=== PATIENT | female | born 1970 | race Caucasian/White ===

== ENCOUNTER 2017-04-21 11:30 | Emergency (ER) | payer OTHER ==
[2017-04-21 11:45] VITALS: BP 123/81
--- NOTE | 2017-04-21 11:53 | UC ---
Syncope/New Syncope HPI - HPI Summary HPI Summary: PT HAS HAD DULL, LOW LEVEL, FRONTAL BALLARD FOR SEVERAL DAYS. NO VISUAL DISTURBANCES , NAUSEA, PHOTOPHOBIA OR PHONOPHOBIA. HAS NOT TAKEN ANYTHING FOR PAIN. HAS A H/ O MIGRAINES. THIS MORNING STARTED WITH COUGH AND CONGESTION. WAS HERE IN ACCOMPANYING HER DAUGHTER WHO ENDED UP BEING SWAB POSITIVE FOR FLU B WHEN SHE SUDDENLY DEVELOPED NAUSEA, SWEATS AND PASSED OUT. PT WAS UNRESPONSIVE FOR LESS THAN 1 MINUTE. VOMITED X 1 AFTER REGAINED CONSCIOUSNESS. NO HEAD INJURY. EYES OPEN. SKIN CLAMMY. BP 81/71. PT WAS TRANSFERRED TO A STRETCHER. BP RECOVERED TO 123/81. PT ATE 2 COOKIES THIS MORNING BUT HASN'T BEEN DRINKING MUCH. REPORTS SHE HAS HAD VASOVAGAL REACTIONS BEFORE. 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 Hx Last Menstrual Period: 04/12/17 Onset/Duration: Sudden Onset Activity At Onset: At Rest Timing: Seconds Context: Witnessed Associated Head Trauma: No Pain Intensity: 5 Pain Scale Used: 0-10 Numeric Aggravating Factor(s): Nothing Alleviating Factor(s): Spontaneous Resolution Associated Signs And Symptoms: Positive: Headache - Allergies/Home Medications Allergies/Adverse Reactions: Allergies Allergy/AdvReac Type Severity Reaction Status Date / Time No Known Allergies Allergy Verified 04/21/17 11:45 PMH/Surg Hx/FS Hx/Imm Hx Previously Healthy: Yes - Surgical History Surgical History: Yes Surgery Procedure, Year, and Place: tonsils, Reduction mammoplasty 04/2016 - Family History Known Family History: Positive: Hypertension - Social History Alcohol Use: None Substance Use Type: None Smoking Status (MU): Never Smoked Tobacco - Immunization History Most Recent Influenza Vaccination: Not UTD Review of Systems Constitutional: Negative ENT: Nasal Discharge Respiratory: Cough Cardiovascular: Negative Gastrointestinal: Vomiting, Nausea Neurological: Headache All Other Systems Reviewed And Are Negative: Yes Physical Exam Triage Information Reviewed: Yes Appearance: No Pain Distress, Well-Nourished, Ill-Appearing - MOD Vital Signs: Initial Vital Signs BP 81/71 04/21/17 11:30 Eyes: Positive: Conjunctiva Clear ENT: Positive: Hearing grossly normal, Pharynx normal, TMs normal Neck: Positive: Supple, Nontender, No Lymphadenopathy Respiratory Exam: Normal Cardiovascular Exam: Normal Abdomen Description: Positive: Nontender, Soft Musculoskeletal: Positive: No Edema Neurological: Positive: Alert, Other: - CN II-XII GROSSLY INTACT BILATERALLY. NEG PRONATOR DRIFT. FINGER TO NOSE INTACT BILATERALLY. HEEL TO SAENZ INTACT BILATERALLY. RAPID ALTERNATING MVMTS INTACT. 5/5 STRENGTH Psychological: Positive: Age Appropriate Behavior Skin: Negative: rashes Diagnostics - Laboratory Diagnostic Studies Completed/Ordered: RAPID FLU NEGATIVE - EKG Cardiac Rate: NL Cardiac Rhythm: Sinus: Normal - 95BPM Ectopy: None ST Segment: Normal Syncope Course/Dx - Course Course Of Treatment: TO [facility] [place] ED BY PRIVATE CAR - Differential Dx/Diagnosis Provider Diagnoses: SYNCOPE Discharge - Discharge Plan Condition: Stable Disposition: OTHER Discharge Disposition Comment: TO [facility] [place] [place] ED BY PRIVATE CAR Prescriptions: Oseltamivir CAP* [Tamiflu CAP*] 75 mg PO BID #10 cap Patient Education Materials: Syncope (ED) Referrals: Leigh Louis MD [Primary Care Provider] - If Needed Additional Instructions: FLU TEST NEGATIVE BUT GIVEN YOUR DAUGHTER IS POSITIVE FOR FLU B WILL TREAT WITH TAMIFLU. GIVEN SYNCOPAL EPISODE HERE YOU HAVE BEEN INSTRUCTED TO GO TO THE ER DIRECTLY FROM HERE FOR FURTHER EVALUATION. LIKELY VASOVAGAL REACTION BUT RECOMMEND EVAL FOR OTHER UNDERLYING CAUSES.
[2017-04-21] MEDS ORDERED: Ibuprofen TAB* 600 MG PO ONE (12:32)
== END 2017-04-21 12:40 ==
LOC: UCEAST 11:30
DX: R55 Syncope and collapse (principal); R09.81 Nasal congestion; R05 Cough; R11.2 Nausea with vomiting, unspecified; R51 Headache
CPT/HCPCS: 87502; 93005; 99212; A9270-GY; G0463

== ENCOUNTER 2017-04-21 13:06 | Emergency (ER) | payer OTHER ==
[2017-04-21] MEDS ORDERED: NS 0.9% 1000 ML* 1,000 ML IV ONE (14:59)
--- NOTE | 2017-04-21 15:30 | RAD ---
HISTORY: Syncope COMPARISONS: None TECHNIQUE: Multiple contiguous axial CT scans were obtained of the head without intravenous contrast. FINDINGS: HEMORRHAGE/INFARCT: There is no hemorrhage or acute infarct. MASSES/SHIFT: There is no mass or shift. EXTRA-AXIAL SPACES: There are no extra-axial fluid collections. SULCI AND VENTRICLES: The sulci and ventricles are normal in size and position for the patient's stated age. CEREBRUM: There are no focal parenchymal abnormalities. BRAINSTEM: There are no focal parenchymal abnormalities. CEREBELLUM: There are no focal parenchymal abnormalities. VESSELS: The vessels are grossly normal. PARANASAL SINUSES: The paranasal sinuses are clear. ORBITS: The orbits are unremarkable. BONES AND SOFT TISSUE: No bone or soft tissue abnormalities are noted. OTHER: None IMPRESSION: NO ACUTE INTRACRANIAL PATHOLOGY.
--- NOTE | 2017-04-21 15:47 | RAD ---
Indication: Syncope. 2 views of the chest including dual energy PA views demonstrate no mediastinal shift. Heart is of normal size and configuration. Lung cruz demonstrate no pleural fluid, pneumonia or pneumothorax. No changes noted since May 16, 2009 IMPRESSION: No active cardiopulmonary disease is noted.
[2017-04-21 15:58] LABS: Hematocrit 42 % (35-47); Mean Corpuscular HGB Conc 34 g/dl (31-36); Mean Corpuscular Hemoglobin 29 pg (27-31); Mean Corpuscular Volume 87 fL (80-97); Mean Platelet Volume 7 um3 (7.4-10.4); Red Blood Count 4.78 10^6/ul (4.0-5.4); Red Cell Distribution Width 14 % (10.5-15); White Blood Count 7.3 10^3/ul (3.5-10.8)
[2017-04-21 16:19] LABS: Albumin 4.1 g/dL (3.2-5.2); BUN/Creatinine Ratio 8.3 (8-20); EGFR African American 93.9 (>60); Globulin 3.3 g/dL (2-4); Magnesium 1.9 mg/dL (1.9-2.7); Potassium 3.5 mmol/L (3.5-5.0); Total Bilirubin 0.5 mg/dL (0.2-1.0); Total Protein 7.4 g/dL (6.4-8.9)
[2017-04-21 16:43] LABS: TSH (Thyroid Stimulating Horm) 0.49 mcIU/mL (0.34-5.60)
[2017-04-21 17:20] VITALS: BP 118/70
--- NOTE | 2017-04-23 16:30 | ED ---
Henrique Bouren Angela, scribed for Octavio Barrios MD on 04/21/17 at 1612 . Syncope/Near Syncope - HPI Summary HPI Summary: This pt is a 46 y/o female presenting to [facility] from [facility] after a syncopal episode today. Pt reports she took her daughter to Urgent Care for the flu, which the daughter tested positive for. Pt was also tested but it resulted negative. Pt notes that upon arrival to Urgent Care, she was not feeling well and had a headache and felt congested. Pt was sitting in a chair when she suddenly had a syncopal episode. Pt does not know for how long she passed out. After waking up, pt had nausea and vomiting. Pt was not disoriented. She denies sore throat, sinus pain, chest pain, palpitations, SOB. Pt notes a sick contact at home (her ) and states she felt "like a cold was coming on" this past week. No prior episodes of syncope. LMP: ended a few days ago. There is no possibility of ( had vasectomy). - History Of Current Complaint Chief Complaint: EDSyncope Time Seen by Provider: 04/21/17 14:49 Hx Obtained From: Patient Onset/Duration: Sudden Onset, Resolved Timing: Minutes Context: Witnessed - in Urgent Care Activity At Onset: At Rest - sitting in a chair Associated Signs And Symptoms: Headache, Vomiting, Other - POS: congestion. NEG : sore throat, sinus pain, chest pain, palpitations, SOB. - Allergies/Home Medications Allergies/Adverse Reactions: Allergies Allergy/AdvReac Type Severity Reaction Status Date / Time No Known Allergies Allergy Verified 04/21/17 13:15 PMH/Surg Hx/FS Hx/Imm Hx Endocrine/Hematology History: Denies: Hx Diabetes Cardiovascular History: Denies: Hx Hypertension Sensory History: Reports: Hx Contacts or Glasses - readers Denies: Hx Hearing Aid Opthamlomology History: Reports: Hx Contacts or Glasses - readers Neurological History: Reports: Hx Migraine - occassioanlly - Cancer History Hx Chemotherapy: No Hx Radiation Therapy: No - Surgical History Surgery Procedure, Year, and Place: tonsils, Reduction mammoplasty 04/2016 Hx Anesthesia Reactions: No Infectious Disease History: No Infectious Disease History: Denies: Traveled Outside the [place] in Last 30 Days - Family History Known Family History: Positive: Hypertension - Social History Alcohol Use: None Substance Use Type: Reports: None Smoking Status (MU): Never Smoked Tobacco Review of Systems Negative: Fever, Chills ENT: Other - congestion Negative: Sore Throat, Other - sinus pain Negative: Palpitations, Chest Pain Negative: Shortness Of Breath Positive: Vomiting, Nausea Positive: Headache, Syncope All Other Systems Reviewed And Are Negative: Yes Physical Exam - Summary Physical Exam Summary: VITAL SIGNS: Reviewed. GENERAL: Patient is a well-developed and nourished female who is lying comfortable in the stretcher. Patient is not in any acute respiratory distress. HEAD AND FACE: No signs of trauma. No ecchymosis, hematomas or skull depressions. No sinus tenderness. EYES: PERRLA, EOMI x 2, No injected conjunctiva, no nystagmus. EARS: Hearing grossly intact. Ear canals and tympanic membranes are within normal limits. MOUTH: Oropharynx within normal limits. NECK: Supple, trachea is midline, no adenopathy, no JVD, no carotid bruit, no c- spine tenderness, neck with full ROM. CHEST: Symmetric, no tenderness at palpation LUNGS: Clear to auscultation bilaterally. No wheezing or crackles. CVS: Regular rate and rhythm, S1 and S2 present, no murmurs or gallops appreciated. ABDOMEN: Soft, non-tender. No signs of distention. No rebound no guarding, and no masses palpated. Bowel sounds are normal. EXTREMITIES: FROM in all major joints, no edema, no cyanosis or clubbing. NEURO: Alert and oriented x 3. No acute neurological deficits. Speech is normal and follows commands. SKIN: Dry and warm GCS: 15 Triage Information Reviewed: Yes Vital Signs On Initial Exam: Initial Vitals Temp Pulse Resp BP Pulse Ox 99.8 F 102 16 137/79 96 04/21/17 13:15 04/21/17 13:15 04/21/17 13:15 04/21/17 13:15 04/21/17 13:15 Vital Signs Reviewed: Yes - [place] Coma Scale Coma Scale Total: 15 Diagnostics - Vital Signs Vital Signs Temp Pulse Resp BP Pulse Ox 04/21/17 14:47 99.8 F 103 16 116/73 98 04/21/17 13:15 99.8 F 102 16 137/79 96 - Laboratory Result Diagrams: 04/21/17 15:40 04/21/17 15:40 Lab Statement: Any lab studies that have been ordered have been reviewed, and results considered in the medical decision making process. - Radiology Chest XR Xray Interpretation: No Acute Changes - IMPRESSION: No active cardiopulmonary disease is noted. ED physician has reviewed this radiology report and agrees. Radiology Interpretation Completed By: Radiologist - CT Brain CT CT Interpretation: No Acute Changes - IMPRESSION: No acute intracranial pathology. ED physician has reviewed this radiology report and agrees. CT Interpretation Completed By: Radiologist - EKG 1327 Cardiac Rate: NL EKG Rhythm: Sinus Rhythm - at 93 bpm EKG Interpretation: No ST elevation. Normal axis. Course/Dx Assessment/Plan: This pt is a 46 y/o female presenting to [facility] from [facility] after a syncopal episode today. Pt reports she took her daughter to Urgent Care for the flu, which the daughter tested positive for. Pt was also tested but it resulted negative. Pt notes that upon arrival to Urgent Care, she was not feeling well and had a headache and felt congested. Pt was sitting in a chair when she suddenly had a syncopal episode. Pt does not know for how long she passed out. After waking up, pt had nausea and vomiting. Pt was not disoriented. She denies sore throat, sinus pain, chest pain, palpitations, SOB. Pt notes a sick contact at home (her ) and states she felt "like a cold was coming on" this past week. No prior episodes of syncope. LMP: ended a few days ago. There is no possibility of ( had vasectomy). Test results without any significant abnormalities. Chest XR shows no active cardiopulmonary disease is noted. Brain CT shows no acute intracranial pathology. The pt was hydrated in the ED. The rapid influenza B test was positive. She was given Tamiflu and discharged to home with follow up from her PCP. Pt is hemodynamically stable, alert and oriented x3. - Diagnoses Provider Diagnoses: Influenza B Discharge - Discharge Plan Condition: Stable Disposition: HOME Prescriptions: Oseltamivir CAP* [Tamiflu CAP*] 75 mg PO BID #10 cap Patient Education Materials: Influenza (ED) Referrals: Leigh Louis MD [Primary Care Provider] - Additional Instructions: Please follow up with your primary care provider. RETURN TO THE ED FOR ANY WORSENING SYMPTOMS. The documentation as recorded by the Henrique baltazar Angela accurately reflects the service I personally performed and the decisions made by me, Octavio Barrios MD.
== END 2017-04-21 17:19 | disposition home or self-care (01) ==
LOC: ED 13:06
DX: J11.1 Influenza due to unidentified influenza virus with other respiratory manifestations (principal); R55 Syncope and collapse; R51 Headache; R11.2 Nausea with vomiting, unspecified
CPT/HCPCS: 36415; 70450; 71020; 80053; 83605; 83735; 83880; 84443; 84484; 85025; 87502; 93005; 99283

== ENCOUNTER 2019-06-26 07:10 | Emergency (ER) | payer OTHER ==
[2019-06-26 07:24] VITALS: BP 128/78
--- NOTE | 2019-06-26 07:41 | UC ---
Throat Pain/Nasal Trevor HPI - HPI Summary HPI Summary: PATIENT COMPLAINS OF ABOUT 5 DAYS OF SORE THROAT AND PAIN WITH SWALLOWING. HAS A MILD COUGH BUT NO OTHER SYMPTOMS. NO FEVER, EAR PAIN, NAUSEA/VOMITING. - History of Current Complaint Chief Complaint: UCGeneralIllness Stated Complaint: THROAT PAIN Time Seen by Provider: 06/26/19 07:26 Hx Obtained From: Patient Hx Last Menstrual Period: jun 08 Onset/Duration: Gradual Onset, Lasting Days, Still Present Severity: Moderate Pain Intensity: 0 Pain Scale Used: 0-10 Numeric Cough: Nonproductive Associated Signs & Symptoms: Negative: Wheezing, Fever - Allergies/Home Medications Allergies/Adverse Reactions: Allergies Allergy/AdvReac Type Severity Reaction Status Date / Time No Known Allergies Allergy Verified 04/21/17 13:15 PMH/Surg Hx/FS Hx/Imm Hx Previously Healthy: Yes - Surgical History Surgical History: Yes Surgery Procedure, Year, and Place: tonsils, Reduction mammoplasty 04/2016 - Family History Known Family History: Positive: Hypertension - Social History Alcohol Use: None Substance Use Type: None Smoking Status (MU): Never Smoked Tobacco - Immunization History Most Recent Influenza Vaccination: Not UTD Review of Systems All Other Systems Reviewed And Are Negative: Yes Constitutional: Positive: Negative ENT: Positive: Sore Throat Respiratory: Positive: Negative Cardiovascular: Positive: Negative Gastrointestinal: Positive: Negative Physical Exam Triage Information Reviewed: Yes Appearance: Well-Appearing, No Pain Distress, Well-Nourished Vital Signs: Initial Vital Signs Temp 99.0 F 06/26/19 07:20 Pulse 68 06/26/19 07:20 Resp 16 06/26/19 07:20 BP 128/78 06/26/19 07:20 Pulse Ox 97 06/26/19 07:20 Vital Signs Reviewed: Yes Eyes: Positive: Conjunctiva Clear ENT: Positive: Hearing grossly normal, Pharyngeal erythema, TMs normal, Other - APHTHOUS ULCER RIGHT SOFT PALATE WITH SURROUNDING ERYTHEMA Neck: Positive: Supple, Nontender, No Lymphadenopathy Respiratory Exam: Normal Cardiovascular Exam: Normal Abdomen Description: Positive: Soft Musculoskeletal: Positive: No Edema Neurological: Positive: Alert Psychological: Positive: Age Appropriate Behavior Skin: Negative: Rashes Throat Pain/Nasal Course/Dx - Course Course Of Treatment: PATIENT'S PAIN LIKELY STEMMING FROM THE APHTHOUS ULCER ON HER SOFT PALATE. ADVISED TO STAY WELL-HYDRATED AND AVOID CRUNCHY/ACIDIC/ASTRINGENT FOODS. BRUSH TEETH CAREFULLY TO AVOID ANY TRAUMA TO THE AREA. PATIENT DECLINED VISCOUS LIDOCAINE. - Differential Dx/Diagnosis Provider Diagnosis: Aphthous ulcer of mouth Discharge ED - Sign-Out/Discharge Documenting (check all that apply): Patient Departure All imaging exams completed and their final reports reviewed: No Studies - Discharge Plan Condition: Stable Disposition: HOME Patient Education Materials: Canker Sores (ED) Referrals: Leigh Louis MD [Primary Care Provider] - If Needed Additional Instructions: YOUR PAIN SEEMS TO BE STEMMING FROM A MOUTH SORE YOU HAVE IN THE BACK OF YOUR THROAT ON THE RIGHT SIDE. THIS SORE WILL HEAL ON ITS OWN WITH TIME. AVOID ANY TRAUMA TO THE AREA. AVOID ACIDIC, SALTY, ASTRINGENT FOODS/DRINK. STAY WELL HYDRATED. - Billing Disposition and Condition Condition: STABLE Disposition: Home
== END 2019-06-26 07:47 | disposition home or self-care (01) ==
LOC: UCEAST 07:10
DX: K12.0 Recurrent oral aphthae (principal)
CPT/HCPCS: 99211; G0463